=== PATIENT | female | born 1995 | race Caucasian/White ===

== ENCOUNTER 2022-06-24 20:14 | Emergency (ER) | payer MEDICAID ==
[~2022-06-24] VITALS: Ht 170.2 cm; Wt 61.2 kg
[2022-06-24] MEDS ORDERED: PARO20TA7 PO (21:31)
[2022-06-24] MEDS ORDERED: QUET25TA PO (21:31)
[2022-06-24] MEDS ORDERED: LORA-259 PO (21:31)
[2022-06-24] MEDS ORDERED: VALP250C3 PO (21:31)
--- NOTE | 2022-06-24 21:38 | NUR ---
Patient discharged to home in stable condition. Written and verbal after care instructions given. Patient verbalizes understanding of instructions. Stressed follow up or return to ER for worsening s/s. Patient is a/ox4, NAD noted. Patient is able to walk with steady gait. Patient is accompanied by SO
[2022-06-24 21:39] VITALS: BP 102/72
== END 2022-06-24 21:40 | disposition home or self-care (01) ==
LOC: ER 20:20
DX: F41.1 Generalized anxiety disorder (principal); Z76.0 Encounter for issue of repeat prescription; F31.9 Bipolar disorder, unspecified
CPT/HCPCS: A4663

== ENCOUNTER 2022-08-16 06:55 | Emergency (ER) | payer MEDICAID, OTHER ==
[~2022-08-16] VITALS: Ht 165.1 cm; Wt 56.7 kg
[~2022-08-16 06:55] MED LIST: LORA-259 PO; PARO20TA7 PO; QUET25TA PO; VALP250C3 PO
--- NOTE | 2022-08-16 07:33 | NUR ---
at bedside for evaluation.
[2022-08-16] MEDS ORDERED: DIAZEPAM 2 MG TABLET PO ONE (07:45)
[2022-08-16] MEDS ORDERED: DIAZEPAM 5 MG TABLET ONE (07:49)
--- NOTE | 2022-08-16 08:08 | NUR ---
Patient currently resting in bed. Easily arousable. No distress noted at this time.
[2022-08-16] MEDS ORDERED: QUET25TA PO (08:50)
[2022-08-16] MEDS ORDERED: LORA-259 PO ×3 (08:50→09:05)
--- NOTE | 2022-08-16 09:15 | NUR ---
Patient discharged to home in stable condition. Written and verbal after care instructions given. Patient verbalizes understanding of instructions. Stressed follow up or return to ER for worsening s/s.
[2022-08-16 09:48] VITALS: BP 128/85
== END 2022-08-16 09:15 | disposition home or self-care (01) ==
LOC: ER 06:55
DX: F41.0 Panic disorder [episodic paroxysmal anxiety] (principal); Z76.0 Encounter for issue of repeat prescription; F31.9 Bipolar disorder, unspecified; Z79.899 Other long term (current) drug therapy
CPT/HCPCS: A4663

== ENCOUNTER 2022-12-06 00:18 | Emergency (ER) | payer OTHER ==
--- NOTE | 2022-12-06 00:20 | NUR ---
Patient was called to be triaged but was not present in the waiting room or outside of ER.
--- NOTE | 2022-12-06 00:50 | NUR ---
Patient was called to be triaged but was not present in the waiting room or outside of ER. Patient was not triaged or seen by ERMD.
== END 2022-12-06 00:50 | disposition left against medical advice (07) ==
LOC: ER 00:18
DX: Z53.21 Procedure and treatment not carried out due to patient leaving prior to being seen by health care provider (principal)